=== PATIENT | female | born 1980 | race Caucasian/White ===

== ENCOUNTER 2022-11-07 03:41 | Emergency (ER) | payer OTHER ==
--- NOTE | 2022-11-07 03:53 | NUR ---
attempted to triage patient. patient refusing all care at this time and wanting to go home. RON CASTELAN made aware of situation. Addendum: 11/07/22 at 0401 by CHRISTIE dharmesh CANDELARIO verified patient claims by Evy CANDELARIO
--- NOTE | 2022-11-07 03:59 | NUR ---
ER MD attempted to speak with patient. patient refusing all care.
--- NOTE | 2022-11-07 04:08 | NUR ---
Patient in custody with [facility]ain KELLOGG. Per PD hit head on the ground but patient is AAOx4 and is refusing to be seen by physician. ER MD attempted to medically screen patient but patient continues to refuse. ER MD unable to medically clear patient and has been taken away by Romain KELLOGG with Original copy of pre-book Hospital Referral/Treatment Report form.
== END 2022-11-07 04:00 ==
LOC: MED 03:41 → EDBD 03:41 → MED 04:00
DX: S09.90XA Unspecified injury of head, initial encounter (principal); V49.88XA Car occupant (driver) (passenger) injured in other specified transport accidents, initial encounter; Y93.89 Activity, other specified; Y92.89 Other specified places as the place of occurrence of the external cause; Y99.8 Other external cause status
CPT/HCPCS: 99283